=== PATIENT | female | born 1970 | race Caucasian/White ===

== ENCOUNTER 2017-08-20 18:57 | Emergency (ER) | payer OTHER, SELFPAY ==
[2017-08-20 18:58] VITALS: BP 159/86; PULSE 102; RESP 17; TEMP 36.7; O2SAT 95; BMI 40.1
--- NOTE | 2017-08-20 19:15 | EKG12_ITS ---
Test Reason : Blood Pressure : / mmHG Vent. Rate : 095 BPM Atrial Rate : 095 BPM P-R Int : 154 ms QRS Dur : 094 ms QT Int : 374 ms P-R-T Axes : 043 -02 022 degrees QTc Int : 469 ms Normal sinus rhythm Normal ECG Confirmed by MIRTHA VILLEDA MD ([id number]), editor in chief PRADEEP RIVAS ([id number] on 08/22/2017 1:19:16 PM Referred By: FRANKIE Confirmed By:MIRTHA VILLEDA MD
--- NOTE | 2017-08-20 19:15 | RAD_ITS ---
STUDY: X-RAY CHEST REASON FOR EXAM: Female, 47 years old. Cough. Dyspnea. TECHNIQUE: PA and lateral views of the chest. COMPARISON: None. FINDINGS: The lungs are mildly hypoexpanded. There is no focal mass or infiltrate. There is no demonstrated pleural abnormality. Normal size heart. Normal mediastinum and pari. Normal visualized pulmonary arteries. Normal visualized aortic arch and descending thoracic aorta. Normal visualized thoracic spine. Normal visualized ribs, clavicles, and shoulders. There is no demonstrated abnormality of the visualized soft tissue structures of the upper abdomen. RAD/Chest PA and Lateral IMPRESSION: No acute cardiopulmonary disease. Electronically Signed: Castro Rhodes DO at 20:12 EDT Tel [phone], Service support ,
[2017-08-20 19:29] VITALS: PULSE 104; RESP 20
[2017-08-20] MEDS: Ipratropium/Albuterol Sulfate 3 ML AMPUL.NEB INHALATION (19:29)
--- NOTE | 2017-08-20 20:25 | ED.VISSUMM ---
- ER Visit Summary Date of Service: 08/20/17 Chief Complaint: Cough History of Present Illness: The patient is a 47 F who presents with a cough. She has had a nonproductive cough for about 5 days. She feels short of breath after coughing fits only. She denies any pain. No fever congestion rhinorrhea sore throat vomiting diarrhea. She states that she was feeling lightheaded as well although she is not dizzy currently. She was initially seen by her primary care physician and diagnosed with pneumonia. She was placed on Tessalon, azithromycin, prednisone. She was not feeling better. She was then again examined by a nurse practitioner who thought that her lungs sounded like they were filling up with fluid. She went to the emergency department at [facility]. She had a workup there which was unremarkable and she was ultimately diagnosed with bronchitis. She was prescribed more Tessalon and advised to complete azithromycin and also start Augmentin. States that given the multiple opinions she was unclear on what was actually going on so presented here for another opinion. Physical Examination: Afebrile heart rate 102 vitals otherwise normal Moist mucous membranes Heart regular rate and rhythm Lungs are clear Abdomen soft Alert Test Results: EKG shows normal sinus rhythm at a rate of 95. Two-view chest x-ray shows no acute process. Emergency Department Course and Treatment: Patient's clinical presentation is more consistent with a bronchitis. She currently has clear lungs. She does not have associated signs or symptoms to suggest cardiac etiology or congestive heart failure. I explained the patient that I do not believe antibiotics are indicated. She was counseled on smoking cessation. She was advised to follow-up with her primary care physician. I see no indication for hospitalization or further workup at this time. She does understand however to return for new or worsening symptoms. Treatment Plan: [] Disposition: Discharge Impression: Bronchitis This note was generated with [employer] dictation software. It may contain incorrect words, spelling, and punctuation that were not noted in review of the chart prior to signing ED Disposition - Plan for ED Patient: Chief Complaint: Shortness of Breath Referrals: Sarah Macias RN [Primary Care Provider] -
--- NOTE | 2017-08-20 20:29 | ED.DCSUM_ITS ---
- ER Visit Summary Date of Service: 08/20/17 Chief Complaint: Cough History of Present Illness: The patient is a 47 F who presents with a cough. She has had a nonproductive cough for about 5 days. She feels short of breath after coughing fits only. She denies any pain. No fever congestion rhinorrhea sore throat vomiting diarrhea. She states that she was feeling lightheaded as well although she is not dizzy currently. She was initially seen by her primary care physician and diagnosed with pneumonia. She was placed on Tessalon, azithromycin, prednisone. She was not feeling better. She was then again examined by a nurse practitioner who thought that her lungs sounded like they were filling up with fluid. She went to the emergency department at [facility]. She had a workup there which was unremarkable and she was ultimately diagnosed with bronchitis. She was prescribed more Tessalon and advised to complete azithromycin and also start Augmentin. States that given the multiple opinions she was unclear on what was actually going on so presented here for another opinion. Physical Examination: Afebrile heart rate 102 vitals otherwise normal Moist mucous membranes Heart regular rate and rhythm Lungs are clear Abdomen soft Alert Test Results: EKG shows normal sinus rhythm at a rate of 95. Two-view chest x- ray shows no acute process. Emergency Department Course and Treatment: Patient's clinical presentation is more consistent with a bronchitis. She currently has clear lungs. She does not have associated signs or symptoms to suggest cardiac etiology or congestive heart failure. I explained the patient that I do not believe antibiotics are indicated. She was counseled on smoking cessation. She was advised to follow- up with her primary care physician. I see no indication for hospitalization or further workup at this time. She does understand however to return for new or worsening symptoms. Treatment Plan: [] Disposition: Discharge Impression: Bronchitis This note was generated with [employer] dictation software. It may contain incorrect words, spelling, and punctuation that were not noted in review of the chart prior to signing ED Disposition - Plan for ED Patient: Chief Complaint: Shortness of Breath Referrals: Sarah Macias RN [Primary Care Provider] -
--- NOTE | 2017-08-20 20:29 | ED.DEP ---
ED Disposition - Plan for ED Patient: Chief Complaint: Shortness of Breath Instructions: Acute Bronchitis Referrals: Sarah Macias, RN [Primary Care Provider] -
[2017-08-20 20:37] VITALS: BP 146/84; PULSE 94; RESP 18; O2SAT 96
--- NOTE | 2017-08-21 13:51 | CM.ED ---
ED CALLBACK: Follow-up call placed to patient. Voicemail left with return contact information.
== END 2017-08-20 20:48 | disposition home or self-care (01) ==
LOC: ED 19:41
PROVIDERS: Emergency Provider Emergency Medicine
DX: J40 Bronchitis, not specified as acute or chronic (principal); E11.9 Type 2 diabetes mellitus without complications; I10 Essential (primary) hypertension; K21.9 Gastro-esophageal reflux disease without esophagitis; F17.200 Nicotine dependence, unspecified, uncomplicated; Z79.02 Long term (current) use of antithrombotics/antiplatelets; Z79.4 Long term (current) use of insulin; Z79.899 Other long term (current) drug therapy
CPT/HCPCS: 71046; 93005; 94640; 99282